=== PATIENT | female | born 1975 | race Caucasian/White ===

== ENCOUNTER 2016-03-13 17:21 | Emergency (ER) | payer BC ==
[2016-03-13 17:51] VITALS: TEMP 97.8; O2SAT 98
--- NOTE | 2016-03-13 19:08 | ED.PDOC ---
History of Present Illness - General Chief Complaint: General Stated Complaint: cough,congestion,fiore Time Seen by Provider: 03/13/16 18:54 Source: patient, RN notes reviewed, Vital Signs reviewed Exam Limitations: no limitations - History of Present Illness Initial Comments: This 40 y/o female has had nasal congestion, cough and headache for 9 days. She has taken over the counter cough and cold without relief. She denies fever. Cough is non-productive. Timing/Duration: getting worse, other - 9 days Severity: moderate Improving Factors: nothing Worsening Factors: nothing Associated Symptoms: cough, headaches, nausea/vomiting - nausea only, shortness of breath, weakness Allergies/Adverse Reactions: Allergies Morphine Allergy (Severe, Verified 08/16/14 17:43) Acetaminophen [From Darvocet-N] Allergy (Unknown, Verified 08/16/14 17:43) Propoxyphene [From Darvocet-N] Allergy (Unknown, Verified 08/16/14 17:43) Aspirin Allergy (Verified 08/16/14 17:43) Codeine Allergy (Verified 08/16/14 17:43) Hydrocodone Allergy (Verified 08/16/14 17:43) Meperidine [From Demerol HCl] Allergy (Verified 08/16/14 17:43) Home Medications: Ambulatory Orders Amoxicillin & Pot Clavulanate [Augmentin] 1 tab PO BID #220 tab 03/13/16 Benzonatate 200 mg PO TID PRN #30 cap 03/13/16 Fluticasone Prop 0.05% Nasal [Flonase Nasal [place]] 2 spray BNAS DAILY PRN #1 bottle 03/13/16 Review of Systems - Review of Systems Constitutional: States: chills, weakness EENTM: States: ear pain, nose pain, nose congestion Respiratory: States: cough, short of breath Cardiology: States: no symptoms reported Gastrointestinal/Abdominal: States: nausea Genitourinary: States: no symptoms reported Musculoskeletal: States: no symptoms reported Skin: States: no symptoms reported Neurological: States: headache Endocrine: States: intolerance to cold Hematologic/Lymphatic: States: no symptoms reported All other Systems: Reviewed and Negative Past Medical History (General) - Patient Medical History Hx Seizures: No Hx Stroke: No Hx Dementia: No Hx Asthma: No Hx of COPD: No Hx Cardiac Disorders: No Hx Congestive Heart Failure: No Hx Pacemaker: No Hx Hypertension: No Hx Thyroid Disease: No Hx Diabetes: Yes Hx Gastroesophageal Reflux: No Hx Renal Disease: No Hx Cancer: No Hx of HIV: No Hx Hepatitis C: No Hx MRSA: No MRSA Source:: Wound Surgical History: appendectomy, Hysterectomy - Vaccination History Hx Tetanus, Diphtheria Vaccination: Yes Hx Influenza Vaccination: Yes - Social History Hx Tobacco Use: No Hx Chewing Tobacco Use: No Hx Alcohol Use: No Hx Substance Use: No Hx Substance Use Treatment: No Hx Depression: No Hx Physical Abuse: No Hx Emotional Abuse: No Hx Suspected Abuse: No - Female History Patient is a Female of Child Bearing Age (10 -59 yrs old): Yes Patient : No Family Medical History - Family History Mother Family History: No Known Physical Exam - Physical Exam General Appearance: Alert, Obese Eye Exam: bilateral normal Ears, Nose, Throat: hearing grossly normal, normal ENT inspection, normal pharynx, sinus pain/drainage - bilateral frontal and maxillary sinus tenderness , nasal congestion Neck: full range of motion, lymphadenopathy (R), lymphadenopathy (L) Respiratory: lungs clear, normal breath sounds, no respiratory distress, no accessory muscle use Cardiovascular/Chest: regular rate, rhythm, no edema, no gallop, no murmur Gastrointestinal/Abdominal: normal bowel sounds, non tender, soft Extremity: normal range of motion Neurologic: alert, normal mood/affect, oriented x 3 Skin Exam: normal color, warm/dry Progress - Results/Orders Results/Orders: 03/13/16 17:46 Temperature 97.8 F Pulse Rate [rt 94 H brachial] Respiratory 20 Rate Blood Pressure 120/89 [rt arm] O2 Sat by Pulse 98 Oximetry Departure - Departure Clinical Impression: Cough Acute sinusitis Qualifiers: Sinusitis location: pansinusitis Recurrence: not specified Qualifier Code: ( J01.40) Acute pansinusitis, unspecified Time of Disposition: 19:11 Disposition: Discharge to Home or Self Care Departure Forms: ED Discharge - Pt. Copy, Patient Portal Self Enrollment Instructions: DI for Sinusitis, Sinusitis Diet: resume usual diet Prescriptions: Amoxicillin & Pot Clavulanate [Augmentin] 1 tab PO BID #220 tab Benzonatate 200 mg PO TID PRN #30 cap PRN Reason: Cough Fluticasone Prop 0.05% Nasal [Flonase Nasal [place]] 2 spray BNAS DAILY PRN #1 bottle PRN Reason: Nasal Congestion Home Medications: Ambulatory Orders Amoxicillin & Pot Clavulanate [Augmentin] 1 tab PO BID #220 tab 03/13/16 Benzonatate 200 mg PO TID PRN #30 cap 03/13/16 Fluticasone Prop 0.05% Nasal [Flonase Nasal [place]] 2 spray BNAS DAILY PRN #1 bottle 03/13/16 Additional Instructions: Over the counter Mucinex-D and Neti Pot (use distilled water only)
[2016-03-13] MEDS ORDERED: AMOXICILLIN & POT CLAVULANATE 875 MG TAB PO ONE (19:21)
[2016-03-13] MEDS ORDERED: BENZONATATE PERLES 100 MG CAP PO ONE (19:21)
[2016-03-13 19:41] VITALS: BP 124/84
== END 2016-03-13 19:41 | disposition home or self-care (01) ==
LOC: ER 17:21
DX: J01.40 Acute pansinusitis, unspecified (principal); R05 Cough; E11.9 Type 2 diabetes mellitus without complications; Z88.6 Allergy status to analgesic agent; Z88.8 Allergy status to other drugs, medicaments and biological substances

== ENCOUNTER 2018-03-12 18:35 | Emergency (ER) | payer SELFPAY ==
[2018-03-12 18:48] VITALS: TEMP 96.9
--- NOTE | 2018-03-12 18:58 | ED.PDOC ---
History of Present Illness - General Chief Complaint: ENT Problem Stated Complaint: right ear pain with hearing loss Time Seen by Provider: 03/12/18 18:55 Source: patient - History of Present Illness Initial Comments: RIGHT EAR PAIN X THREE DAYS, SOUNDS SEEMS MUFFLED. DENIES ANY FEVER BUT JUST GOT OVER A SINUS INFECTION. Timing/Duration: gradual EENT Location: ear (R) Prearrival Treatment: over the counter meds Improving Factors: nothing Worsening Factors: nothing Associated Symptoms: change in hearing, malaise Allergies/Adverse Reactions: Allergies Morphine Allergy (Severe, Verified 08/16/14 17:43) Acetaminophen [From Darvocet-N] Allergy (Unknown, Verified 08/16/14 17:43) Propoxyphene [From Darvocet-N] Allergy (Unknown, Verified 08/16/14 17:43) Aspirin Allergy (Verified 08/16/14 17:43) Codeine Allergy (Verified 08/16/14 17:43) Hydrocodone Allergy (Verified 08/16/14 17:43) Meperidine [From Demerol HCl] Allergy (Verified 08/16/14 17:43) Home Medications: Ambulatory Orders Amoxicillin & Pot Clavulanate [Augmentin Tab] 875 mg PO BID #20 tab 03/12/18 Jose E/Poly/Hc Otic Susp [Cortisporin Otic Susp] 10 ml OTIC Q6HRS #1 bttl 03/12/18 Tramadol HCl 50 mg PO Q6HRS #20 tab 03/12/18 Review of Systems - Review of Systems Constitutional: States: no symptoms reported EENTM: States: ear pain Respiratory: States: no symptoms reported Cardiology: States: no symptoms reported Gastrointestinal/Abdominal: States: no symptoms reported Genitourinary: States: no symptoms reported Musculoskeletal: States: no symptoms reported Skin: States: no symptoms reported Neurological: States: no symptoms reported Past Medical History (General) - Patient Medical History Hx Seizures: No Hx Stroke: No Hx Dementia: No Hx Asthma: No Hx of COPD: No Hx Cardiac Disorders: No Hx Congestive Heart Failure: No Hx Pacemaker: No Hx Hypertension: No Hx Thyroid Disease: No Hx Diabetes: Yes Hx Gastroesophageal Reflux: No Hx Renal Disease: No Hx Cancer: No Hx of HIV: No Hx Hepatitis C: No Hx MRSA: No MRSA Source:: Wound Surgical History: Hysterectomy - Vaccination History Hx Tetanus, Diphtheria Vaccination: Yes Hx Influenza Vaccination: No - Social History Hx Tobacco Use: No Hx Chewing Tobacco Use: No Hx Alcohol Use: No Hx Substance Use: No Hx Substance Use Treatment: No Hx Depression: No Hx Physical Abuse: No Hx Emotional Abuse: No Hx Suspected Abuse: No - Female History Patient : No Family Medical History - Family History Mother Family History: No Known Physical Exam - Physical Exam General Appearance: Alert, Well Developed, Well Groomed, Well Hydrated, Well Nourished Eye Exam: bilateral normal, bilateral abnormal EOM Ear Exam: left ear: canal normal - CANAL IS RED WITH MILD SWELLING, TM red Nasal Exam: normal inspection Neck: non-tender Cardiovascular/Respiratory: regular rate, rhythm, no M/R/G, normal breath sounds, no respiratory distress Abdominal Exam: non-tender, no organomegaly, no hernia Skin Exam: normal color Departure - Departure Clinical Impression: Otitis media Qualifiers: Otitis media type: unspecified Chronicity: acute Qualified Code(s): H66.90 - Otitis media, unspecified, unspecified ear Otitis externa Qualifiers: Otitis externa type: unspecified type Chronicity: acute Laterality: right Qualified Code(s): H60.501 - Unspecified acute noninfective otitis externa, right ear Time of Disposition: 18:59 Disposition: Discharge to Home or Self Care Condition: Good Departure Forms: ED Discharge - Pt. Copy, Patient Portal Self Enrollment Instructions: DI for Otitis Externa, DI for Ear Pain-Adult Diet: resume usual diet Referrals: Dionisio Verde MD [Primary Care Provider] - 1-2 Weeks Prescriptions: Jose E/Poly/Hc Otic Susp [Cortisporin Otic Susp] 10 ml OTIC Q6HRS #1 bttl Tramadol HCl 50 mg PO Q6HRS #20 tab Amoxicillin & Pot Clavulanate [Augmentin Tab] 875 mg PO BID #20 tab Home Medications: Ambulatory Orders Amoxicillin & Pot Clavulanate [Augmentin Tab] 875 mg PO BID #20 tab 03/12/18 Jose E/Poly/Hc Otic Susp [Cortisporin Otic Susp] 10 ml OTIC Q6HRS #1 bttl 03/12/18 Tramadol HCl 50 mg PO Q6HRS #20 tab 03/12/18
[2018-03-12 19:09] VITALS: BP 148/85; O2SAT 96
== END 2018-03-12 19:10 | disposition home or self-care (01) ==
LOC: ER 18:35
DX: H66.91 Otitis media, unspecified, right ear (principal); H60.501 Unspecified acute noninfective otitis externa, right ear; E11.9 Type 2 diabetes mellitus without complications; Z88.5 Allergy status to narcotic agent; Z88.6 Allergy status to analgesic agent; Z88.8 Allergy status to other drugs, medicaments and biological substances

== ENCOUNTER → 2020-02-23 | Outpatient (CLI) | payer OTHER ==
--- NOTE | 2020-02-24 20:40 | MAM ---
EXAM DESCRIPTION: 3D Screening BILATERAL : Digital Mammography. CLINICAL HISTORY: 44 years Female SCREENING .. No complaints and no family history of breast cancer. Menarche age 13. Childbirth age 16. Menopause age unknown. No HRT.. Lifetime risk of developing breast cancer (Tyrer-Cuzick model)(%): 6.3. COMPARISON: Bilateral screening digital breast 2-D imaging December 2014 No prior reports available. TECHNIQUE: Bilateral CC and MLO projection full-field images, digital tomosynthesis mammographic technique. Bilateral digital 2-D full-field MLO images. CAD available for 2-D images. FINDINGS: The breast parenchymal density pattern is: Heterogeneously dense breast tissue, which may obscure small masses. Solitary microcalcifications. Vascular calcifications. Groups of benign type calcifications. Intramammary circumscribed nodules bilaterally are stable. Some nodules are associated with benign type calcifications. No skin thickening or nipple retraction No new focal, stellate mass or density, focal asymmetry , and no suspicious microcalcifications bilaterally. Stable mammograms compared to prior study. Taking into account, differences in mammographic technique. IMPRESSION: Benign exam. BIRAD CATEGORY: 2 BENIGN FINDINGS. RECOMMENDATIONS: FOLLOW UP: Routine digital bilateral mammographic screening, one year interval from February 2020. Written communication explaining the IMPRESSION and follow-up, will be mailed to the patient and referring health care provider. According to the [employer], yearly mammograms are recommended starting at age 40 and continuing as long as a woman is in good health. Any breast change noted on a breast self-exam should be reported promptly to the patient's healthcare provider. Breast MRI is recommended for women with an approximately 20-25% or greater lifetime risk of breast cancer, including women with a strong family history of breast or ovarian cancer and women who have been treated for Hodgkin's disease. A negative mammographic report should not delay tissue diagnosis in patients with significant clinical history or physical findings. Extremely dense breast tissue limits the sensitivity of digital mammography. Electronically signed by: Janes Rivera MD 02/24/2020 8:39 PM [facility]
== END ==
LOC: MAMMO 15:48
PROVIDERS: ATTEND General Practice
DX: Z12.31 Encounter for screening mammogram for malignant neoplasm of breast (principal)